=== PATIENT | male | born 1960 | race Caucasian/White ===

== ENCOUNTER → 2018-11-19 | Outpatient (CLI) | payer OTHER ==
[~2018-11-19] MED LIST: AMBIEN PO; AVAPRO; BENTYL20 MG PO; CARISOPRODOL 3350 MG PO; CELEBREX 200 M200 M1 PO; CLONIDINE HCL0.2 M2 PO; CYMBALTA60 MG PO; DILAUDID 4 MG TA4 MG PO; ENDOCET; HYDROCHLOROTHIA25 M1 PO; LISINOPRIL20 MG PO; LOSARTAN POTAS100 MG PO; LYRICA; MEDROLDOSEPACK PO; NORCO 5-325 TA1 EACH PO; OXYCODONE-ACET1 EAC2 PO; PERCOCET 7.5-31 EACH PO; PHENERGAN 25 MG25 MG PO; TRICOR; VALIUM5 MG PO; ZOFRAN ODT4 MG PO
== END ==
LOC: M.PC 09:40
DX: M25.552 Pain in left hip (principal); M54.5 Low back pain; M87.059 Idiopathic aseptic necrosis of unspecified femur; E78.5 Hyperlipidemia, unspecified; I10 Essential (primary) hypertension; Z79.891 Long term (current) use of opiate analgesic; Z98.890 Other specified postprocedural states